=== PATIENT | male | born 1970 | race Caucasian/White ===

== ENCOUNTER 2020-07-28 12:15 | Emergency (ER) | payer OTHER, MEDICAID ==
[~2020-07-28] VITALS: Ht 167.6 cm; Wt 93.0 kg
[2020-07-28 12:24] VITALS: BP_SYST 146
[2020-07-28] MEDS ORDERED: METH-634 PO (13:11)
[2020-07-28] MEDS ORDERED: IBUP-1969 PO (13:11)
[2020-07-28 15:05] VITALS: BP_SYST 146
== END 2020-07-28 15:05 | disposition home or self-care (01) ==
LOC: SED 12:15
DX: S16.1XXA Strain of muscle, fascia and tendon at neck level, initial encounter (principal); S43.51XA Sprain of right acromioclavicular joint, initial encounter; I10 Essential (primary) hypertension; Z88.1 Allergy status to other antibiotic agents
CPT/HCPCS: 71045; 72125-TC; 73030; 76376; 99284

== ENCOUNTER 2021-02-06 14:53 | Emergency (ER) | payer OTHER, MEDICAID ==
[~2021-02-06] VITALS: Ht 172.7 cm; Wt 77.1 kg
[~2021-02-06 14:53] MED LIST: IBUP-1969 PO; METH-634 PO
[2021-02-06 15:11] VITALS: BP_SYST 116
--- NOTE | 2021-02-06 15:21 | NUR ---
Patient to ER bed 2 to gown for evaluation. Side rails up. Report given to .
--- NOTE | 2021-02-06 15:23 | NUR ---
PT COMES TO ER WITH C/O WORSENING RT HEARING LOSS FOR 3 DAYS, DENIES ANY PAIN. DENIES ANY INJURY. RESP EVEN AND UNLABORED, ON RA @99%. REPORTS HAVING A SERIOUS HEAD INJURY BACK IN 1995 WITH SURGERIES. WAITING FOR ER MD OSMAN.
--- NOTE | 2021-02-06 17:59 | NUR ---
PT WITH EYES CLOSED, IN NAD. RESP EVEN AND UNLABORED, ON RA @99%. WAIITEVIE FOR ER MD OSMAN.
--- NOTE | 2021-02-06 18:45 | NUR ---
Patient given written and verbal discharge instructions and verbalizes understanding. ER MD discussed with patient the results and treatment provided. Patient in stable condition. ID arm band removed. Patient educated on pain management and to follow up with PMD. Pain Scale . Opportunity for questions provided and answered. Medication side effect fact sheet provided.
== END 2021-02-06 18:36 | disposition home or self-care (01) ==
LOC: SED 14:53
DX: H61.21 Impacted cerumen, right ear (principal); Z88.1 Allergy status to other antibiotic agents; Z79.899 Other long term (current) drug therapy
CPT/HCPCS: 99284

== ENCOUNTER 2023-05-17 17:26 | Emergency (ER) | payer OTHER, MEDICAID ==
[~2023-05-17] VITALS: Ht 172.7 cm; Wt 81.6 kg
[2023-05-17 17:50] VITALS: BP_SYST 120; PULSE 56; RESP 19; TEMP 97.9; O2SAT 100
[2023-05-17] MEDS ORDERED: IBUP-1969 PO (20:33)
[2023-05-17] MEDS ORDERED: DICL20GE TP (20:33)
[2023-05-17 20:54] VITALS: BP_SYST 115; PULSE 56; RESP 16; TEMP 97.6; O2SAT 98
== END 2023-05-17 20:54 | disposition home or self-care (01) ==
LOC: SED 17:26
DX: M79.644 Pain in right finger(s) (principal); Z88.1 Allergy status to other antibiotic agents; Z79.899 Other long term (current) drug therapy
CPT/HCPCS: 73140; 99283